=== PATIENT | male | born 1965 | race Caucasian/White ===

== ENCOUNTER 2017-01-23 18:58 | Emergency (ER) | payer BC ==
[~2017-01-23] VITALS: Ht 188 cm; Wt 96.4 kg
[~2017-01-23 18:58] MED LIST: ASPIRIN 81M81 MG/TA2 PO; ASPIRIN E.C. 8181 MG PO; BETAPACE 80MG80 MG; BETAPACE 80MG80 MG PO; BLOOD THINNER; CARDIZEM CD 24240 MG PO; CEPHALEXIN500 M1; COLACE 100100 MG/CAP PO; CORDARONE200 MG/TAB PO; COUMADIN 5MG5 MG/TAB PO; COUMADIN 77.5 MG/TAB PO; GENTAMICIN IO; HYDROCORTISO28.35 G1 TP; LASIX 20MG TABL20 MG PO; LORTAB 5/500 501 TAB PO; LOVENOX 100100 MG/ML SQ; NITROSTAT0.4 MG/TAB SL; NO HOME MEDICATIONS; NORCO 325 MG-51 TAB PO; PERCOCET 325 MG1 TA2 PO; TAMIFLU 75MG75 MG PO; TOPROL XL 25MG25 MG PO; TOPROL XL 50MG50 MG PO; VASOTEC 2.2.5 MG/TAB PO; XARELTO20 MG PO; ZITHROMAX 250M250 MG PO; ZOFRAN 4MG T4 MG/TAB PO
[2017-01-23 19:03] VITALS: TEMP 98.7
[2017-01-23] MEDS ORDERED: TOPROL XL 25MG25 MG PO (19:06)
[2017-01-23] MEDS ORDERED: ASPIRIN 81M81 MG/TA2 PO (19:07)
[2017-01-23 20:07] LABS: BASO % 0.5 % (0.0-2.0); EOS # 0.2 (0.0-0.7); EOS % 2.9 % (0-4.0); GRAN # 2.8 (1.4-6.5); GRAN % 48.4 % (42.2-75.2); HEMATOCRIT 43.2 % (42.0-52.0); HEMOGLOBIN 14.6 g/dl (13.5-18.0); LYMPH # 2.4 (1.2-3.4); LYMPH % 40.3 % (20.0-51.0); MEAN CELL VOLUME 89 fl (80.0-100.0); MEAN CORPUSCULAR HEMOGLOBIN 30 pg (27.0-31.0); MEAN CORPUSCULAR HGB CONC 34 g/dl (33.0-37.0); MEAN PLATELET VOLUME 11.9 fl (7.4-10.4); MONO # 0.5 (0.1-0.6); MONO % 7.7 % (1.7-9.3); PLATELET COUNT 140 K/mm3 (130-400); RED BLOOD COUNT 4.87 M/mm3 (4.20-5.60); REDCELL DISTRIBUTION WIDTH-CV 12.2 % (11.5-14.5); WHITE BLOOD COUNT 5.9 K/mm3 (4.8-10.8)
[2017-01-23 20:26] LABS: ALBUMIN 4.3 gm/dL (3.5-5.0); BILIRUBIN,TOTAL 0.6 mg/dL (0.0-1.0); CALCIUM 9.2 mg/dL (8.4-10.2); CREATININE, serum 0.88 mg/dL (0.66-1.25); POTASSIUM 3.7 mmol/L (3.4-5.0); TOTAL PROTEIN 6.9 gm/dL (6.4-8.2)
[2017-01-23 20:54] LABS: TROPONIN-I 0.016 ng/mL (0.000-0.034)
[2017-01-23 21:03] VITALS: BP 124/71; PULSE 83
== END 2017-01-23 21:03 | disposition home or self-care (01) ==
LOC: COL.ER 18:58
PROVIDERS: Emergency Medicine
DX: R51 Headache (principal); R53.81 Other malaise; I48.91 Unspecified atrial fibrillation; I42.9 Cardiomyopathy, unspecified; Z95.1 Presence of aortocoronary bypass graft; Z98.890 Other specified postprocedural states; Z79.82 Long term (current) use of aspirin
CPT/HCPCS: J3010; J7030

== ENCOUNTER 2017-11-16 11:37 | Day surgery (SDC) | payer BC ==
[~2017-11-16] VITALS: Ht 188 cm; Wt 95.8 kg
[2017-11-16] MEDS ORDERED: MOBIC15 MG PO (12:26)
[2017-11-16 12:51] VITALS: BP 119/88; PULSE 60; TEMP 98.3
[2017-11-16 18:13] VITALS: BP 134/91; PULSE 69; TEMP 98
== END 2017-11-16 20:03 | disposition home or self-care (01) ==
LOC: SDCO 11:37 → SURG 17:55 → SDCO 20:03
DX: K42.0 Umbilical hernia with obstruction, without gangrene (principal); K40.90 Unilateral inguinal hernia, without obstruction or gangrene, not specified as recurrent; Z79.82 Long term (current) use of aspirin; Z79.899 Other long term (current) drug therapy; I42.8 Other cardiomyopathies; I08.0 Rheumatic disorders of both mitral and aortic valves; F17.220 Nicotine dependence, chewing tobacco, uncomplicated
CPT/HCPCS: OP; A4315; C1781; J0690; J1100; J1885; J2250; J2405; J2704; J2710; J3010; J7120

== ENCOUNTER → 2017-12-03 | Outpatient (CLI) | payer BC ==
[~2017-12-03] MED LIST changes: +MOBIC15 MG PO
== END ==
LOC: COL.RAD 13:33
DX: I86.1 Scrotal varices (principal); N43.2 Other hydrocele

== ENCOUNTER 2018-10-19 18:03 | Inpatient (IN) | payer BC ==
[2018-10-19] VITALS (118 sets, daily range): BP systolic 89–94; BP diastolic 63–82; PULSE 114; TEMP 98.7; O2SAT 91–100
[~2018-10-19] VITALS: Ht 188 cm; Wt 92.0 kg
[2018-10-19] MEDS ORDERED: CELEBREX 200MG200 MG PO (19:11)
[2018-10-19 19:14] LABS: BASO # 0.1 (0.0-0.2); BASO % 0.8 % (0.0-2.0); EOS # 0.2 (0.0-0.7); EOS % 2.6 % (0-4.0); GRAN # 3.1 (1.4-6.5); HEMATOCRIT 42.6 % (42.0-52.0); HEMOGLOBIN 14.3 g/dl (13.5-18.0); LYMPH # 2.6 (1.2-3.4); LYMPH % 39.2 % (20.0-51.0); MEAN CELL VOLUME 90 fl (80.0-100.0); MEAN CORPUSCULAR HEMOGLOBIN 30 pg (27.0-31.0); MEAN CORPUSCULAR HGB CONC 34 g/dl (33.0-37.0); MONO # 0.6 (0.1-0.6); MONO % 9.2 % (1.7-9.3); PLATELET COUNT 154 K/mm3 (130-400); RED BLOOD COUNT 4.75 M/mm3 (4.20-5.60); REDCELL DISTRIBUTION WIDTH-CV 12.3 % (11.5-14.5)
[2018-10-19 19:27] LABS: ALANINE AMINOTRANSFERASE 21 U/L (21-72); ALBUMIN 4.2 gm/dL (3.5-5.0); ALKALINE PHOSPHATASE 55 U/L (50-136); ANION GAP 5 mmol/L (7-16); AST,SGOT 27 U/L (15-37); BILIRUBIN,TOTAL 0.6 mg/dL (0.0-1.0); BLOOD UREA NITROGEN 22 mg/dL (9-20); CALCIUM 9.3 mg/dL (8.4-10.2); CARBON DIOXIDE 25 mmol/L (22-30); CHLORIDE 108 mmol/L (98-107); CREATININE, serum 0.88 (0.66-1.25); GLUCOSE 89 mg/dL (74-106); POTASSIUM 3.9 mmol/L (3.4-5.0); SODIUM 138 mmol/L (137-145); TOTAL PROTEIN 6.9 gm/dL (6.4-8.2)
[2018-10-19 19:29] LABS: PROTHROMBIN TIME 11.3 SECONDS (9.7-12.8)
[2018-10-19 19:31] LABS: PARTIAL THROMBOPLASTIN TIME 32.7 SECONDS (26.0-37.0)
[2018-10-19 19:39] LABS: TROPONIN-I < 0.012 ng/mL (0.000-0.035)
[2018-10-19 23:24] LABS: MAGNESIUM 1.9 mg/dL (1.6-2.3)
--- NOTE | 2018-10-19 23:30 | NUR ---
Received phone call from technology administrator notifying of pt conversion. Pt is resting in bed on his left side at this time. Pt notified.
[2018-10-19 23:37] LABS: TROPONIN-I < 0.012 ng/mL (0.000-0.035)
[2018-10-20] VITALS (400 sets, daily range): BP systolic 87–113; BP diastolic 55–75; PULSE 75–81; TEMP 97.9–98; O2SAT 83–100
[2018-10-20 05:20] LABS: BASO % 0.9 % (0.0-2.0); EOS # 0.2 (0.0-0.7); EOS % 4.4 % (0-4.0); GRAN # 1.8 (1.4-6.5); GRAN % 38.9 % (42.2-75.2); HEMATOCRIT 42.3 % (42.0-52.0); HEMOGLOBIN 14.1 g/dl (13.5-18.0); LYMPH # 2.1 (1.2-3.4); LYMPH % 46.6 % (20.0-51.0); MEAN CELL VOLUME 90 fl (80.0-100.0); MEAN CORPUSCULAR HEMOGLOBIN 30 pg (27.0-31.0); MEAN CORPUSCULAR HGB CONC 33 g/dl (33.0-37.0); MEAN PLATELET VOLUME 11.3 fl (7.4-10.4); MONO # 0.4 (0.1-0.6); PLATELET COUNT 140 K/mm3 (130-400); RED BLOOD COUNT 4.69 M/mm3 (4.20-5.60); REDCELL DISTRIBUTION WIDTH-CV 12.6 % (11.5-14.5)
[2018-10-20 05:42] LABS: CALCIUM 8.9 mg/dL (8.4-10.2); CREATININE, serum 0.9 (0.66-1.25)
--- NOTE | 2018-10-20 07:30 | NUR ---
Pt report provided to Andre Blanco RN. Pt in bed resting. Pt requested earlier when notified of bedside shift change that if sleeping to not awaken the pt.
--- NOTE | 2018-10-20 08:37 | NUR ---
Female visitor at bedside with pt. Pt continues to deny discomfort.
--- NOTE | 2018-10-20 10:15 | NUR ---
Initial visit; Patient and his thanked Hadoop Analyst for looking in on him and offering God's blessings.
[2018-10-20] MEDS ORDERED: BETAPACE 80MG80 MG PO (10:25)
--- NOTE | 2018-10-20 10:30 | NUR ---
SW met with patient after clinical rounds. Patient will discharge home today. Patient lives independently at home with his . Patient's PCP is Dr Horan and he obtains prescriptions from [facility]. Patient reports he does not use any medical equipment at home or home health services. Patient does have a DPOA. SW does not anticipate any discharge needs.
[2018-10-20] MEDS ORDERED: COUMADIN 5MG5 MG/TAB PO (10:33)
--- NOTE | 2018-10-20 11:46 | NUR ---
MD Roxana paged about abnormal EKG prior to discharge
--- NOTE | 2018-10-20 12:08 | NUR ---
Confirmed with MD Roxana on most recent EKG, pt is cleared to discharge
== END 2018-10-20 12:00 | disposition home or self-care (01) | DRG 310 ==
LOC: COL.ER 18:03 → ICU 19:45
PROVIDERS: Emergency Medicine; Nurse Practitioner Family
DX: I48.0 Paroxysmal atrial fibrillation (principal); I42.0 Dilated cardiomyopathy; Z95.2 Presence of prosthetic heart valve; F17.220 Nicotine dependence, chewing tobacco, uncomplicated
CPT/HCPCS: 99222-AI; J1650; J7030

== ENCOUNTER 2020-03-10 17:32 | Emergency (ER) | payer BC ==
[~2020-03-10] VITALS: Ht 188 cm; Wt 96.4 kg
[~2020-03-10 17:32] MED LIST changes: +CELEBREX 200MG200 MG PO
[2020-03-10 17:35] VITALS: TEMP 98.1
[2020-03-10 17:56] LABS: BASO # 0.1 (0.0-0.2); BASO % 0.7 % (0.0-2.0); EOS # 0.2 (0.0-0.7); EOS % 2.5 % (0-4.0); GRAN # 3.4 (1.4-6.5); GRAN % 46.8 % (42.2-75.2); HEMOGLOBIN 15.6 g/dl (13.5-18.0); LYMPH # 3.1 (1.2-3.4); MEAN CELL VOLUME 90 fl (80.0-100.0); MEAN CORPUSCULAR HEMOGLOBIN 30 pg (27.0-31.0); MEAN CORPUSCULAR HGB CONC 33 g/dl (33.0-37.0); MEAN PLATELET VOLUME 12.4 fl (7.4-10.4); MONO # 0.6 (0.1-0.6); MONO % 7.9 % (1.7-9.3); PLATELET COUNT 155 K/mm3 (130-400); RED BLOOD COUNT 5.21 M/mm3 (4.20-5.60); REDCELL DISTRIBUTION WIDTH-CV 12.4 % (11.5-14.5)
[2020-03-10 17:57] LABS: PROTHROMBIN TIME 11.1 SECONDS (9.7-12.8)
[2020-03-10 18:02] LABS: ALBUMIN 4.5 gm/dL (3.5-5.0); BILIRUBIN,TOTAL 0.5 mg/dL (0.0-1.0); CALCIUM 9.4 mg/dL (8.4-10.2); CREATININE, serum 1.18 (0.66-1.25); POTASSIUM 4.1 mmol/L (3.4-5.0); TOTAL PROTEIN 7.4 gm/dL (6.4-8.2)
[2020-03-10 18:14] LABS: TROPONIN-I 0.019 ng/mL (0.000-0.035)
[2020-03-10] MEDS ORDERED: TOPROL XL 25MG25 MG PO (20:47)
[2020-03-10 21:09] VITALS: BP 111/73; PULSE 76
== END 2020-03-10 21:10 | disposition home or self-care (01) ==
LOC: COL.ER 17:32
PROVIDERS: Emergency Medicine
DX: I48.20 Chronic atrial fibrillation, unspecified (principal); E03.9 Hypothyroidism, unspecified; Z98.61 Coronary angioplasty status; Z79.890 Hormone replacement therapy
CPT/HCPCS: J7030

== ENCOUNTER 2020-04-04 22:15 | Emergency (ER) | payer BC ==
[~2020-04-04] VITALS: Ht 188 cm; Wt 96.4 kg
[2020-04-04 22:19] VITALS: TEMP 97.8
[2020-04-04] MEDS ORDERED: CORDARONE200 MG/TAB PO (22:38)
[2020-04-04] MEDS ORDERED: ELIQUIS 5MG PO (22:38)
[2020-04-04 22:46] LABS: BASO # 0.1 (0.0-0.2); BASO % 0.7 % (0.0-2.0); EOS # 0.2 (0.0-0.7); EOS % 2.6 % (0-4.0); GRAN % 43.3 % (42.2-75.2); HEMATOCRIT 44.9 % (42.0-52.0); LYMPH # 3.1 (1.2-3.4); LYMPH % 44.5 % (20.0-51.0); MEAN CELL VOLUME 91 fl (80.0-100.0); MEAN CORPUSCULAR HEMOGLOBIN 30 pg (27.0-31.0); MEAN CORPUSCULAR HGB CONC 33 g/dl (33.0-37.0); MEAN PLATELET VOLUME 12.1 fl (7.4-10.4); MONO # 0.6 (0.1-0.6); MONO % 8.8 % (1.7-9.3); PLATELET COUNT 167 K/mm3 (130-400); RED BLOOD COUNT 4.94 M/mm3 (4.20-5.60); REDCELL DISTRIBUTION WIDTH-CV 12.5 % (11.5-14.5)
[2020-04-04 22:52] LABS: ALANINE AMINOTRANSFERASE 22 U/L (4-49); ALBUMIN 4.5 gm/dL (3.5-5.0); ALKALINE PHOSPHATASE 64 U/L (50-136); ANION GAP 8 mmol/L (7-16); AST,SGOT 29 U/L (15-37); BILIRUBIN,TOTAL 0.6 mg/dL (0.0-1.0); BLOOD UREA NITROGEN 28 mg/dL (9-20); CALCIUM 9.1 mg/dL (8.4-10.2); CARBON DIOXIDE 25 mmol/L (22-30); CHLORIDE 107 mmol/L (98-107); CREATININE, serum 1.24 (0.66-1.25); GLUCOSE 109 mg/dL (74-106); POTASSIUM 4.2 mmol/L (3.4-5.0); SODIUM 140 mmol/L (137-145); TOTAL PROTEIN 7.3 gm/dL (6.4-8.2)
[2020-04-04 23:04] LABS: TROPONIN-I < 0.012 ng/mL (0.000-0.035)
[2020-04-05] MEDS ORDERED: TOPROL XL 25MG25 MG PO ×2 (01:15)
[2020-04-05 01:42] VITALS: BP 122/84; PULSE 43
== END 2020-04-05 01:50 | disposition home or self-care (01) ==
LOC: COL.ER 22:15
PROVIDERS: Emergency Medicine
DX: I48.91 Unspecified atrial fibrillation (principal); Z88.1 Allergy status to other antibiotic agents; Z79.01 Long term (current) use of anticoagulants
CPT/HCPCS: J0282; J7030; J7060

== ENCOUNTER 2021-01-13 07:19 | Emergency (ER) | payer BC ==
[~2021-01-13] VITALS: Ht 172.7 cm; Wt 94.5 kg
[~2021-01-13 07:19] MED LIST changes: +ELIQUIS 5MG PO
[2021-01-13 07:25] VITALS: TEMP 98.5
[2021-01-13 07:55] LABS: BASO % 0.7 % (0.0-2.0); EOS # 0.2 (0.0-0.7); EOS % 2.8 % (0-4.0); GRAN # 2.9 (1.4-6.5); GRAN % 53.7 % (42.2-75.2); HEMATOCRIT 47.2 % (42.0-52.0); HEMOGLOBIN 15.5 g/dl (13.5-18.0); LYMPH # 1.9 (1.2-3.4); LYMPH % 35.5 % (20.0-51.0); MEAN CELL VOLUME 90 fl (80.0-100.0); MEAN CORPUSCULAR HEMOGLOBIN 30 pg (27.0-31.0); MEAN CORPUSCULAR HGB CONC 33 g/dl (33.0-37.0); MEAN PLATELET VOLUME 12.1 fl (7.4-10.4); MONO # 0.4 (0.1-0.6); MONO % 7.1 % (1.7-9.3); PLATELET COUNT 161 K/mm3 (130-400); RED BLOOD COUNT 5.24 M/mm3 (4.20-5.60); REDCELL DISTRIBUTION WIDTH-CV 12.6 % (11.5-14.5)
[2021-01-13 08:02] LABS: ALBUMIN 4.2 gm/dL (3.5-5.0); BILIRUBIN,TOTAL 0.6 mg/dL (0.0-1.0); CALCIUM 9.8 mg/dL (8.4-10.2); CREATININE, serum 1.11 (0.66-1.25); POTASSIUM 4.1 mmol/L (3.4-5.0); TOTAL PROTEIN 7.4 gm/dL (6.4-8.2)
[2021-01-13 08:13] LABS: TROPONIN-I 0.019 ng/mL (0.000-0.035)
[2021-01-13 09:17] VITALS: BP 121/85; PULSE 74
== END 2021-01-13 09:17 | disposition home or self-care (01) ==
LOC: COL.ER 07:19
PROVIDERS: Personal Emergency Response Attendant
DX: R07.89 Other chest pain (principal); I48.92 Unspecified atrial flutter; I50.9 Heart failure, unspecified; Z79.01 Long term (current) use of anticoagulants

== ENCOUNTER 2024-03-05 16:37 | Inpatient (IN) | payer BC ==
[2024-03-05] VITALS (131 sets, daily range): BP systolic 84–129; BP diastolic 61–86; PULSE 67–89; TEMP 98.3; O2SAT 91–99
[~2024-03-05] VITALS: Ht 188 cm; Wt 93.5 kg
[2024-03-05] MEDS ORDERED: dilTIAZem 25 MG/5 ML VIAL IV ONE (17:00)
[2024-03-05 17:02] LABS: BASO % 0.5 % (0.0-2.0); EOS # 0.2 K/mm3 (0.0-0.7); EOS % 2.4 % (0.0-4.0); GRAN # 4.2 K/mm3 (1.4-6.5); GRAN % 53.1 % (42.2-75.2); HEMATOCRIT 40.7 % (42.0-52.0); HEMOGLOBIN 13.7 g/dl (13.5-18.0); LYMPH # 2.7 K/mm3 (1.2-3.4); MEAN CELL VOLUME 91 fl (80.0-100.0); MEAN CORPUSCULAR HEMOGLOBIN 31 pg (27-31); MEAN CORPUSCULAR HGB CONC 34 g/dl (33.0-37.0); MONO # 0.8 K/mm3 (0.1-0.6); MONO % 9.7 % (1.7-9.3); PLATELET COUNT 247 K/mm3 (130-400); RED BLOOD COUNT 4.48 M/mm3 (4.20-5.60); REDCELL DISTRIBUTION WIDTH-CV 12.3 % (11.5-14.5)
[2024-03-05 17:07] LABS: INR 1.1 (0.8-3.0); PROTHROMBIN TIME 11.6 SECONDS (9.7-12.8)
[2024-03-05 17:10] LABS: PARTIAL THROMBOPLASTIN TIME 29.7 SECONDS (26.0-37.0)
[2024-03-05] MEDS ORDERED: NS 1,000 ML IV ONE (17:15)
[2024-03-05 17:20] LABS: ALANINE AMINOTRANSFERASE 13 U/L (0-55); ALBUMIN 3.6 g/dL (3.4-4.8); ALKALINE PHOSPHATASE 60 U/L (40-150); ANION GAP 9 mmol/L (7-16); AST,SGOT 15 U/L (5-34); BILIRUBIN,TOTAL 0.6 mg/dL (0.2-1.2); BLOOD UREA NITROGEN 23 mg/dL (8-26); CALCIUM 9.4 mg/dL (8.4-10.2); CHLORIDE 106 mEq/L (98-107); CREATININE, serum 0.95 mg/dL (0.72-1.25); GLUCOSE 99 mg/dL (70-99); POTASSIUM 4.1 mEq/L (3.5-4.5); SODIUM 140 mEq/L (136-145); TOTAL PROTEIN 6.6 g/dl (6.2-8.1)
[2024-03-05 17:28] LABS: TROPONIN-I < 0.010 ng/mL (0.00-0.033)
[2024-03-05] MEDS ORDERED: Adenosine 6 MG/2 ML VIAL IV ONE (18:00)
[2024-03-05] MEDS ORDERED: Heparin 5,000 UNITS/ML 1 ML VIAL IV ONE (19:30)
[2024-03-05] MEDS ORDERED: Acetaminophen 325 MG TAB PO PRN (19:30)
[2024-03-05] MEDS ORDERED: Heparin 5,000 UNITS/ML 1 ML VIAL IV PRN (19:30)
[2024-03-05] MEDS ORDERED: Heparin/D5W 250 ML IV SCH (19:30)
[2024-03-05] MEDS ORDERED: Iohexol 300 - 100 ML VIAL IV ONE (20:14)
[2024-03-05] MEDS ORDERED: ASPIRIN 32325 MG/TAB PO (20:18)
[2024-03-05] MEDS ORDERED: SENNA-S 50 MG-81 TAB PO (20:20)
[2024-03-05] MEDS ORDERED: ROXICODONE 55 MG/TAB PO (20:20)
[2024-03-05] MEDS ORDERED: PAXLOVID CO-PA1 EACH PO (20:21)
[2024-03-05] MEDS ORDERED: ULTRAM 50MG TAB50 MG PO (20:21)
[2024-03-05] MEDS ORDERED: traMADol 50 MG TAB PO PRN (20:30)
[2024-03-05] MEDS ORDERED: Melatonin 3 MG TAB PO SCH (21:00)
[2024-03-06] VITALS (448 sets, daily range): BP systolic 98–114; BP diastolic 61–86; PULSE 65–81; TEMP 98.2–98.4; O2SAT 86–100
[2024-03-06 03:30] LABS: BASO % 0.4 % (0.0-2.0); EOS # 0.2 K/mm3 (0.0-0.7); EOS % 2.5 % (0.0-4.0); GRAN # 3.7 K/mm3 (1.4-6.5); HEMATOCRIT 37.1 % (42.0-52.0); HEMOGLOBIN 12.8 g/dl (13.5-18.0); LYMPH # 2.5 K/mm3 (1.2-3.4); LYMPH % 35.5 % (20.0-51.0); MEAN CELL VOLUME 89 fl (80.0-100.0); MEAN CORPUSCULAR HEMOGLOBIN 31 pg (27-31); MEAN CORPUSCULAR HGB CONC 35 g/dl (33.0-37.0); MEAN PLATELET VOLUME 10.4 fl (7.4-10.4); MONO # 0.6 K/mm3 (0.1-0.6); MONO % 8.2 % (1.7-9.3); PLATELET COUNT 214 K/mm3 (130-400); RED BLOOD COUNT 4.19 M/mm3 (4.20-5.60); REDCELL DISTRIBUTION WIDTH-CV 12.4 % (11.5-14.5)
[2024-03-06 04:14] LABS: CALCIUM 8.9 mg/dL (8.4-10.2); CREATININE, serum 0.78 mg/dL (0.72-1.25)
[2024-03-06] MEDS ORDERED: Sennosides/Docusate 8.6-50 MG TAB PO SCH (09:00)
[2024-03-06] MEDS ORDERED: MULTAQ400 MG PO (09:39)
--- NOTE | 2024-03-06 10:00 | NUR ---
Interactive Digital Media Specialist attended clinical rounds with the team and patient will be discharged home today. Patient has covid and is in isolation. SW contacted patient's , Kita who had a friend assist her with translation as estonian is her second language. Kita advised they live in [place] and patient sees Dr. Horan for primary care. 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 Patient had knee surgery recently and was set up with outpatient PT, however Kita advised he cancelled his appointments this week due to his covid status. Kita stated patient does not have DPOA-HC at this time. Discharge Plan; Home
--- NOTE | 2024-03-06 10:36 | NUR ---
PT IS RESTING IN BED. HE IS ALERT AND ORIENTED. HIS IS USING THE URINAL. HE IS ON ROOM AIR. HIS IS NO LONGER IN AFIB/AFLUTTER. HE HAS 2 IV SITES WITH HEPARIN AND CARDIZEM INFUSING.
--- NOTE | 2024-03-06 13:01 | NUR ---
PT WAS DISCHARGED TO HOME WITH FAMILY. HE WAS TAKEN OUT IN A WHEELCHAIR. ALL IV'S ARE OUT. PT HAS ALL OF HIS BELONGINGS AND ALL OF HIS DISCHARGE PAPERWORK. HE WAS ALERT AND ORIENTED AND ON NO OXYGEN.
== END 2024-03-06 12:13 | disposition home or self-care (01) | DRG 308 ==
LOC: COL.ER 16:37 → ICU 19:38
PROVIDERS: Family Medicine; Nurse Practitioner Family; ADMIT Internal Medicine
DX: I48.91 Unspecified atrial fibrillation (principal); U07.1 COVID-19; I50.32 Chronic diastolic (congestive) heart failure; Z72.0 Tobacco use
CPT/HCPCS: J0153; J1644; J7030; Q9967